=== PATIENT | female | born 2000 | race Caucasian/White ===

== ENCOUNTER 2022-08-28 03:25 | Emergency (ER) | payer OTHER ==
[~2022-08-28] VITALS: Ht 167.6 cm; Wt 53.1 kg
--- NOTE | 2022-08-28 03:29 | NUR ---
Dr. De La Fuente examining patient in triage room.
[2022-08-28 03:35] VITALS: BP 110/75
[2022-08-28] MEDS ORDERED: ACETAMINOPHEN EXTRA STRENGTH 500 MG TAB PO ONE (03:40)
[2022-08-28] MEDS ORDERED: IBUPROFEN 600 MG TAB PO ONE (03:40)
[2022-08-28] MEDS ORDERED: IBUP-2213 PO (03:42)
[2022-08-28] MEDS ORDERED: DEXT118S47 PO (03:42)
[2022-08-28 03:50] VITALS: BP 110/75
--- NOTE | 2022-08-28 03:50 | NUR ---
Patient discharged with v/s stable. Written and verbal after care instructions given and explained. Patient alert, oriented and verbalized understanding of instructions. Ambulatory with steady gait. All questions addressed prior to discharge. ID band removed. Patient advised to follow up with PMD. Rx of Tussin DM Liquid and Ibuprofen given. Patient educated on indication of medication including possible reaction and side effects. Opportunity to ask questions provided and answered.
== END 2022-08-28 03:50 | disposition home or self-care (01) ==
LOC: MED 03:25
DX: J06.9 Acute upper respiratory infection, unspecified (principal); H92.03 Otalgia, bilateral; R19.7 Diarrhea, unspecified; Z79.899 Other long term (current) drug therapy; Z79.1 Long term (current) use of non-steroidal anti-inflammatories (NSAID)
CPT/HCPCS: 99283